=== PATIENT | female | born 1940 | race Caucasian/White ===

== ENCOUNTER → 2016-12-09 | Outpatient (CLI) | payer MEDICARE, OTHER | LOC: RAD 15:05 | PROVIDERS: ATTEND Physician Assistant | DX: M51.36 Other intervertebral disc degeneration, lumbar region (principal) | CPT/HCPCS: 72148 ==

== ENCOUNTER → 2017-05-17 | Outpatient (CLI) | payer MEDICARE, OTHER ==
--- NOTE | 2017-05-17 12:06 | WOMENS IMAGING REPORT ---
EXAM DESCRIPTION: BONE DENSITY HIP/SPINE COMPLETED DATE/TIME: 05/17/2017 8:05 am REASON FOR STUDY: OSTEOPOROSIS M81.0 AGE-RELATED OSTEOPOROSIS W/O CURRENT PATHOLOGICAL FRAC COMPARISON: 2006 TECHNIQUE: Dual-Energy X-ray Absorptiometry (DEXA) of the AP Spine and Hip. LIMITATIONS: None. FINDINGS: LUMBAR SPINE: The bone mineral density (BMD) measured from L1-L4 in the AP projection correlates with a T-score of -1.2, which is osteopenic as defined by the World Health Organization. This is similar compared to 2 007 HIP: The bone mineral density (BMD) measured in the left femoral neck at the hip correlates with a T-score of -1.6, which is osteopenic as defined by the World Health Organization. This is similar compared to 2007 IMPRESSION: 1. LUMBAR SPINE: Osteopenic 2. HIP: Osteopenic COMMENT: The World Health Organization defines low BMD as follows: T-score: Normal: Greater than -1.0 Osteopenia: Between -1.0 and -2.5 Osteoporosis: Less than -2.5 without fractures Established osteoporosis: Less than -2.5 with fractures In general, you may wish to consider: Diagnosis Treatment Follow-up DEXA Normal BMD Prevention 2-3 years Osteopenia Prevention/Therapy 1-2 years Osteoporosis Therapy Yearly TECHNICAL DOCUMENTATION: JOB ID: [id number]- All Rights Reserved
== END ==
LOC: WI 07:41
PROVIDERS: ATTEND Physician Assistant
DX: M81.0 Age-related osteoporosis without current pathological fracture (principal)
CPT/HCPCS: 77080

== ENCOUNTER → 2018-03-03 | Outpatient (CLI) | payer MEDICARE, OTHER ==
--- NOTE | 2018-03-03 17:21 | RADIOLOGY REPORT (SQ) ---
EXAM DESCRIPTION: MRI LUMBAR SPINE WITHOUT COMPLETED DATE/TIME: 03/03/2018 4:58 pm REASON FOR STUDY: RADICULOPATHY, LUMBAR REGION M54.16 RADICULOPATHY, LUMBAR REGION COMPARISON: MRI lumbar spine 12/09/2016 TECHNIQUE: Sagittal and Axial imaging includes T1, T2, STIR and gradient echo sequences. Coronal T2/ HASTE imaging. LIMITATIONS: None. FINDINGS: VISUALIZED UPPER ABDOMEN: 1 cm hemorrhagic cyst left lower pole kidney unchanged compared to 12/09/2016. SEGMENTATION: No transitional anatomy. The lowest well-developed disc space is labeled L5-S1. ALIGNMENT: Anatomic. VERTEBRAE: Intact. BONE MARROW: No worrisome marrow signal abnormalities DISC SIGNAL: Diffuse decreased T2 weighted intervertebral disc signal throughout the lumbar spine POSTERIOR ELEMENTS: Generally intact. No pars defect evident. HARDWARE: None in the spine. CORD AND CONUS: Normal in size and signal intensity. Conus at the L1 level. SOFT TISSUES: No aortic aneurysm seen. No bulky retroperitoneal adenopathy or mass. No paraspinal mas s or fluid. T11-12: Unremarkable T12-L1: Mild bilateral facet arthropathy without significant central or foraminal encroachment. L1-L2: Minimal posterior disc bulging, mild to moderate facet and ligament hypertrophy without signif icant central or foraminal encroachment. L2-L3: Mild posterior disc bulging, mild bilateral facet and ligament hypertrophy without significant central or foraminal encroachment. L3-L4: Minimal posterior disc bulging, mild bilateral facet and ligament hypertrophy. No significant central or foraminal encroachment. L4-L5: Minimal posterior disc bulging. Mild bilateral facet and ligament hypertrophy. Old left micr o laminectomy. No central canal narrowing. Mild bilateral foraminal narrowing without exit nerve ro ot impingement L5-S1: Mild bilateral facet arthropathy. No central or foraminal encroachment. SACRUM: Visualized upper sacrum intact. OTHER: No other significant findings. IMPRESSION: Mild diffuse degenerative changes without high-grade central or foraminal encroachment. Old micro laminectomy at L4-5 without recurrent disc herniation. TECHNICAL DOCUMENTATION: JOB ID: [id number]- All Rights Reserved Reading location - IP/workstation name: [facility]-RR
--- NOTE | 2018-03-03 19:21 | RADIOLOGY REPORT (SQ) ---
EXAM DESCRIPTION: L SPINE 2 VIEWS COMPLETED DATE/TIME: 03/03/2018 6:03 pm REASON FOR STUDY: LUMBAR RADICULOPATHY M54.16 RADICULOPATHY, LUMBAR REGION COMPARISON: None. NUMBER OF VIEWS: Two views. TECHNIQUE: AP and lateral radiographic images acquired of the lumbar spine. LIMITATIONS: None. FINDINGS: MINERALIZATION: Osteopenia. SEGMENTATION: Normal. No transitional anatomy. ALIGNMENT: Normal. VERTEBRAE: Maintained height. No fracture or worrisome bone lesion. DISCS: Disc space heights are maintained except for mild narrowing at L4-5 and L5-S1. Bridging osteo phytes are seen at L3-4 and prominent marginal osteophytes is seen in the upper lumbar spine. POSTERIOR ELEMENTS: Pedicles and facets are intact. No pars defect or posterior arch defects. HARDWARE: None in the spine. PARASPINAL SOFT TISSUES: Normal. PELVIS: Intact as visualized. No fractures or worrisome bone lesions. SI joints intact. OTHER: No other significant finding. IMPRESSION: Degenerative disc disease and spondylosis. TECHNICAL DOCUMENTATION: JOB ID: [id number] [employer]- All Rights Reserved Reading location - IP/workstation name: [email or web address]
--- NOTE | 2018-03-04 09:43 | RADIOLOGY REPORT (SQ) ---
EXAM DESCRIPTION: L SPINE FLEX/EXT ONLY COMPLETED DATE/TIME: 03/03/2018 6:03 pm REASON FOR STUDY: LUMBAR RADICULOPATHY M54.16 RADICULOPATHY, LUMBAR REGION COMPARISON: None. NUMBER OF VIEWS: Five view. TECHNIQUE: AP and lateral views of the lumbar spine with flexion and extension. LIMITATIONS: None. FINDINGS: MINERALIZATION: Normal. SEGMENTATION: Normal. No transitional anatomy. ALIGNMENT: Normal. FLEXION/EXTENSION: No instability. VERTEBRAE: Maintained height. No fracture or worrisome bone lesion. DISCS: Mild disc space narrowing with osteophytes. POSTERIOR ELEMENTS: Pedicles and facets are intact. No pars defect or posterior arch defects. HARDWARE: None in the spine. OTHER: No other significant finding. IMPRESSION: DEGENERATIVE DISC DISEASE. NO INSTABILITY ON FLEXION/EXTENSION. TECHNICAL DOCUMENTATION: JOB ID: [id number] [employer]- All Rights Reserved Reading location - IP/workstation name: [email or web address]
== END ==
LOC: RAD 15:38
PROVIDERS: ATTEND Specialist
DX: M54.16 Radiculopathy, lumbar region (principal)
CPT/HCPCS: 72100; 72120; 72148; 82565

== ENCOUNTER → 2018-03-29 | Outpatient (CLI) | payer MEDICARE, OTHER ==
--- NOTE | 2018-03-29 10:04 | WOMENS IMAGING REPORT ---
EXAM DESCRIPTION: RETROPERITONEAL U/S COMPLETED DATE/TIME: 03/29/2018 9:01 am REASON FOR STUDY: DYSURIA,HEMATURIA,UNSPEC ABD PAIN R10.9 UNSPECIFIED ABDOMINAL PAIN R31.9 HEMATUR IA, UNSPECIFIED R30.0 DYSURIA COMPARISON: Renal ultrasound 04/11/2009 CT abdomen pelvis without contrast 05/28/2009 TECHNIQUE: Dynamic and static grayscale images acquired of the kidneys and bladder and recorded on P ACS. Additional selected color Doppler and spectral images recorded. LIMITATIONS: None. FINDINGS: RIGHT KIDNEY: Normal size, 11 cm in length Normal echogenicity. No solid or suspiciou s masses. No hydronephrosis. No calcifications. LEFT KIDNEY: Normal size, 12 cm in length Normal echogenicity. No solid or suspicious masses. No hydronephrosis. 12 mm cyst left lower pole kidney. No calcifications. BLADDER: No masses. Bilateral ureteral jets are identified OTHER FINDINGS: No other significant finding. IMPRESSION: NORMAL RENAL AND BLADDER ULTRASOUND. TECHNICAL DOCUMENTATION: JOB ID: [id number] [employer]- All Rights Reserved Reading location - IP/workstation name: [email or web address]-RR
== END ==
LOC: WI 07:10
PROVIDERS: ATTEND Physician Assistant
DX: R10.9 Unspecified abdominal pain (principal); R31.9 Hematuria, unspecified; R30.0 Dysuria
CPT/HCPCS: 76770

== ENCOUNTER → 2018-04-28 | Outpatient (CLI) | payer MEDICARE, OTHER ==
--- NOTE | 2018-04-30 10:25 | RADIOLOGY REPORT (SQ) ---
EXAM DESCRIPTION: MRI RT UPPER JOINT WITHOUT COMPLETED DATE/TIME: 04/28/2018 9:42 am REASON FOR STUDY: COMPLETE ROTATOR CUFF RUPTURE OF RIGHT SHOULDER M75.121 COMPLETE ROTATR-CUFF TEAR /RUPTR OF R SHOULDER, NOT T COMPARISON: None. TECHNIQUE: Right shoulder images acquired and stored on PACS. Multiplanar imaging to include fat sen sitive sequences such as T1, water sensitive sequences such as FST2/STIR, cartilage sensitive sequenc es such as FSPD/gradient-echo sequences. LIMITATIONS: None. FINDINGS: BONE MARROW AND CORTEX: No worrisome bone lesions or marrow replacement. No occult fractur es. JOINT OR BURSAL EFFUSION: Trace bursa fluid. GLENO-HUMERAL ARTICULATION: Normal articulation. No subluxation. No cystic change. No osteophytes or cartilage loss. ACROMION AND AC JOINT: Mild dorsal degenerative hypertrophy. No subacromial compromise. ROTATOR CUFF AND INTERVAL: Mild bursal surface fraying along the cuff. No suggestion of high-grade p artial or full-thickness tear. No cuff muscle atrophy. Reactive bone edema in the posterolateral hu meral head underlying cuff insertion. LABRUM AND BICEPS LABRAL COMPLEX: No high-grade labral tear. No biceps subluxation or dislocation. REMAINDER OF LABRUM AND IGHL : Mild blunting throughout the posterior labrum. No displaced tear or p aralabral cyst. PERIARTICULAR AND ADJACENT SOFT TISSUES: No masses or abnormal nodes. OTHER: No other significant finding. IMPRESSION: 1. Mild cuff disease, as above. No high-grade partial or full-thickness tear. TECHNICAL DOCUMENTATION: JOB ID: [id number] [employer]- All Rights Reserved Reading location - IP/workstation name: [email or web address]
== END ==
LOC: RAD 08:07
PROVIDERS: ATTEND Orthopaedic Surgery Sports Medicine
DX: M75.121 Complete rotator cuff tear or rupture of right shoulder, not specified as traumatic (principal)

== ENCOUNTER → 2018-09-06 | Outpatient (CLI) | payer MEDICARE, OTHER ==
--- NOTE | 2018-09-06 10:35 | RADIOLOGY REPORT (SQ) ---
EXAM DESCRIPTION: FOOT RIGHT COMPLETE COMPLETED DATE/TIME: 09/06/2018 10:07 am REASON FOR STUDY: PAIN IN RIGHT FOOT M79.671 PAIN IN RIGHT FOOT since 09/02/2018, patient states pravin ching gets Achilles tendon pain when she takes Cipro COMPARISON: None. NUMBER OF VIEWS: Three views. TECHNIQUE: AP, lateral and oblique radiographic images acquired of the right foot. LIMITATIONS: None. FINDINGS: MINERALIZATION: Normal. BONES: No acute fracture or dislocation. No worrisome bone lesions. Moderate-sized dorsal and plant ar calcaneal spurs. Mild thickening of the distal Achilles tendon at its calcaneal insertion on late ral view. JOINTS: No ankle joint effusion SOFT TISSUES: No soft tissue swelling. No foreign body. OTHER: No other significant finding. IMPRESSION: Mild thickening of the distal Achilles tendon by plain film. Moderate size calcaneal sp ur at the Achilles tendon attachment. No acute findings TECHNICAL DOCUMENTATION: JOB ID: [id number] [employer]- All Rights Reserved Reading location - IP/workstation name: [email or web address]-RR
== END ==
LOC: OD 09:41
PROVIDERS: ATTEND Family Medicine
DX: M79.671 Pain in right foot (principal)

== ENCOUNTER → 2018-09-30 | Outpatient (CLI) | payer MEDICARE, OTHER ==
--- NOTE | 2018-09-30 09:31 | RADIOLOGY REPORT (SQ) ---
EXAM DESCRIPTION: CT ABD/PELVIS NO ORAL OR IV COMPLETED DATE/TIME: 09/30/2018 9:05 am REASON FOR STUDY: FEVER (R50.9), UTI (N39.0), FLANK PAIN (R10.9) R50.9 FEVER, UNSPECIFIED N39.0 UR INARY TRACT INFECTION, SITE NOT SPECIFIED R10.9 UNSPECIFIED ABDOMINAL PAIN COMPARISON: 05/28/2009. TECHNIQUE: CT scan of the abdomen and pelvis performed without intravenous or oral contrast. Images reviewed with lung, soft tissue, and bone windows. Reconstructed coronal and sagittal MPR images revi ewed. All images stored on PACS. All CT scanners at this facility use dose modulation, iterative reconstruction, and/or weight based d osing when appropriate to reduce radiation dose to as low as reasonably achievable (ALARA). [facility]: Dose Right [facility]: CareDose [facility]: Dose Right [facility]: Teradose 4D [facility]: [employer] RADIATION DOSE: CT Rad equipment meets quality standard of care and radiation dose reduction techniq ues were employed. CTDIvol: 13.8 mGy. DLP: 772 mGy-cm.mGy. LIMITATIONS: None. FINDINGS: LOWER CHEST: Parenchymal scarring. No nodules or infiltrates. NON-CONTRASTED LIVER, SPLEEN, ADRENALS: Evaluation limited by lack of IV contrast. No identified sign ificant masses. PANCREAS: No masses. No peripancreatic inflammatory changes. GALLBLADDER: Surgically absent. RIGHT KIDNEY AND URETER: No suspicious masses. Assessment limited by lack of IV contrast. No signif icant calcifications. No hydronephrosis or hydroureter. LEFT KIDNEY AND URETER: 1.3 cm hyperdense cortical lesion in the lower pole. No suspicious masses. A ssessment limited by lack of IV contrast. No significant calcifications. No hydronephrosis or hyd roureter. AORTA AND RETROPERITONEUM: No aneurysm. No retroperitoneal masses or adenopathy. BOWEL AND PERITONEAL CAVITY: A few scattered colonic diverticuli. No obvious masses or inflammatory changes. No free fluid. APPENDIX: Surgically absent. PELVIS, BLADDER, AND ABDOMINAL WALL:No abnormal masses. No free fluid. Bladder normal. BONES: No significant findings. OTHER: No other significant finding. IMPRESSION: 1. MILD COLONIC DIVERTICULOSIS. NO CT FINDINGS OF DIVERTICULITIS. 2. HEMORRHAGIC CORTICAL CYST IN THE LOWER POLE OF THE LEFT KIDNEY. SLIGHTLY LARGER COMPARED TO PRIOR STUDY IN 2008 BUT OTHERWISE UNCHANGED. 3. NO OTHER SIGNIFICANT OR ACUTE PROCESS IN THE ABDOMEN OR PELVIS. COMMENT: Quality ID # [id number]: Final reports with documentation of one or more dose reduction techniques (e.g., Automated exposure control, adjustment of the mA and/or kV according to patient size, use of iterative reconstruction technique) TECHNICAL DOCUMENTATION: JOB ID: [id number] [employer]- All Rights Reserved Reading location - IP/workstation name: [email or web address]
[2018-09-30 09:33] LABS: ABSOLUTE BASOPHILS # (AUTO) 0.1 10^3/uL (0.0-0.2); ABSOLUTE EOSINOPHILS # (AUTO) 0.7 10^3/uL (0.0-0.6); ABSOLUTE LYMPHOCYTES (AUTO) 0.9 10^3/uL (0.5-4.7); ABSOLUTE MONOCYTES (AUTO) 0.6 10^3/uL (0.1-1.4); ABSOLUTE NEUT (AUTO) 12.3 10^3/uL (1.7-8.2); BASOPHILS % (AUTO) 0.4 % (0-2); EOSINOPHILS % (AUTO) 4.5 % (0-6); HEMATOCRIT 38.8 % (36.0-47.0); HEMOGLOBIN 12.2 g/dL (12.0-15.5); MEAN CORPUSCULAR HEMOGLOBIN 23.7 pg (27.0-33.4); MEAN CORPUSCULAR HGB CONC 31.3 g/dL (32.0-36.0); MEAN CORPUSCULAR VOLUME 76 fl (80-97); MONOCYTES % (AUTO) 4.4 % (3-13); PLATELET COUNT 254 10^3/uL (150-450); RED BLOOD COUNT 5.14 10^6/uL (3.72-5.28); RED CELL DISTRIBUTION WIDTH 17.6 % (11.5-14.0); SEGMENTED NEUTROPHILS % (AUTO) 84.7 % (42-78); TOTAL CELLS COUNTED % (AUTO) 100 %; WHITE BLOOD COUNT 14.5 10^3/uL (4.0-10.5)
[2018-09-30 09:47] LABS: ALANINE AMINOTRANSFERASE 24 U/L (9-52); ALBUMIN 4.2 g/dL (3.5-5.0); ALKALINE PHOSPHATASE 80 U/L (38-126); ANION GAP 10 (5-19); ASPARTATE AMINO TRANSFERASE 21 U/L (14-36); BILIRUBIN,DIRECT 0.1 mg/dL (0.0-0.4); BILIRUBIN,TOTAL 0.6 mg/dL (0.2-1.3); BLOOD UREA NITROGEN 14 mg/dL (7-20); CALCIUM 9.2 mg/dL (8.4-10.2); CARBON DIOXIDE 26 mmol/L (22-30); CHLORIDE 104 mmol/L (98-107); GLUCOSE 119 mg/dL (75-110); POTASSIUM 4.7 mmol/L (3.6-5.0); SODIUM 140.1 mmol/L (137-145); TOTAL PROTEIN 7.4 g/dL (6.3-8.2)
== END ==
LOC: RAD 08:36
PROVIDERS: ATTEND Physician Assistant
DX: R50.9 Fever, unspecified (principal); N39.0 Urinary tract infection, site not specified; R10.9 Unspecified abdominal pain
CPT/HCPCS: 36415; 74176; 80053; 85025; 87040

== ENCOUNTER → 2019-01-11 | Outpatient (CLI) | payer MEDICARE, OTHER ==
--- NOTE | 2019-01-11 13:31 | RADIOLOGY REPORT (SQ) ---
EXAM DESCRIPTION: FOOT LEFT COMPLETE COMPLETED DATE/TIME: 01/11/2019 10:16 am REASON FOR STUDY: LACERATION W/O FB OF LEFT GREAT TOE W/O DAMAGE TO NAIL, INIT S91.112A LACERATION W/O FB OF LEFT GREAT TOE W/O DAMAGE TO N M79.672 PAIN IN LEFT FOOT COMPARISON: None. NUMBER OF VIEWS: Three views. TECHNIQUE: AP, lateral and oblique radiographic images acquired of the left foot. LIMITATIONS: None. FINDINGS: MINERALIZATION: Normal. BONES: No acute fracture or dislocation. No worrisome bone lesions. JOINTS: No effusions. SOFT TISSUES: Anterior and posterior soft OTHER: Anterior and posterior heel spurs. IMPRESSION: No acute posttraumatic bone or soft tissue changes. Heel spurs. TECHNICAL DOCUMENTATION: JOB ID: [id number] [employer]- All Rights Reserved Reading location - IP/workstation name: [email or web address] [email or web address]
== END ==
LOC: OD 09:57
PROVIDERS: ATTEND Physician Assistant
DX: S91.112A Laceration without foreign body of left great toe without damage to nail, initial encounter (principal); M79.672 Pain in left foot; X58.XXXA Exposure to other specified factors, initial encounter

== ENCOUNTER → 2020-07-05 | Outpatient (CLI) | payer MEDICARE, OTHER ==
--- NOTE | 2020-07-05 11:44 | RADIOLOGY REPORT (SQ) ---
EXAM DESCRIPTION: MRI LUMBAR SPINE WITHOUT IMAGES COMPLETED DATE/TIME: 07/05/2020 10:55 am REASON FOR STUDY: LOW BACK PAIN M54.5 LOW BACK PAIN COMPARISON: 03/03/2018 MRI lumbar spine, CT 09/30/2018 TECHNIQUE: Sagittal and Axial imaging includes T1, T2, STIR and gradient echo sequences. Coronal T2/ HASTE imaging. LIMITATIONS: None. FINDINGS: VISUALIZED UPPER ABDOMEN: Limited evaluation. No acute or suspicious findings suggested. SEGMENTATION: No transitional anatomy. The lowest well-developed disc space is labeled L5-S1. ALIGNMENT: Anatomic. VERTEBRAE: Intact. BONE MARROW: No marrow replacing or reactive process. L4-T1 and T2 bright lesion most compatible wit h small hemangioma. DISC SIGNAL: Mild multilevel disc desiccation. POSTERIOR ELEMENTS: Generally intact. No pars defect evident. HARDWARE: None in the spine. CORD AND CONUS: Normal in size and signal intensity. Conus medullaris terminates at L1-2. SOFT TISSUES: No aortic aneurysm seen. No bulky retroperitoneal adenopathy or mass. No paraspinal mas s or fluid. L1-L2: No significant spinal stenosis or exit foraminal stenosis. L2-L3: Small broad-based circumferential disc bulge without high-grade spinal canal stenosis. There is mild lateral recess narrowing with contact of the traversing nerve roots. Mild bilateral neural f oraminal narrowing secondary to disc disease. L3-L4: Small circumferential disc bulge without high-grade spinal canal stenosis. Mild lateral reces s narrowing on the left with contact of the traversing nerve roots. There is mild bilateral neural f oraminal narrowing secondary to disc disease. L4-L5: Postsurgical changes from prior laminectomy. Small circumferential disc bulge with no high-gr genaro spinal canal stenosis. There is lateral recess narrowing with contact of the traversing nerve ro ots, left greater than right. Moderate bilateral neural foraminal narrowing secondary to disc and fa cet disease. L5-S1: No significant spinal canal stenosis or neural foraminal narrowing. LOWER THORACIC: Incompletely imaged. No stenosis seen. SACRUM: Visualized upper sacrum intact. OTHER: No other significant findings. IMPRESSION: 1. No evidence of acute bony abnormality of the lumbar spine. 2. Postsurgical changes at L4-5. There is moderate bilateral neural foraminal narrowing at that lev el secondary to disc and facet disease. 3. No high-grade spinal canal stenosis. Additional multilevel degenerative changes as above. TECHNICAL DOCUMENTATION: JOB ID: [id number] 2010 [employer]- All Rights Reserved Reading location - IP/workstation name: [email or web address]
== END ==
LOC: RAD 09:53
PROVIDERS: ATTEND Physician Assistant
DX: M51.86 Other intervertebral disc disorders, lumbar region (principal); M54.5 Low back pain
CPT/HCPCS: 72148